=== PATIENT | female | born 1965 | race Caucasian/White ===

== ENCOUNTER 2017-12-06 15:22 | Outpatient (CLI) | payer BC, SELFPAY | END 2017-12-06 15:23 | disposition home or self-care (01) | LOC: DTY/OP 15:22 | PROVIDERS: ATTEND Physician Assistant | DX: I10 Essential (primary) hypertension (principal); E11.9 Type 2 diabetes mellitus without complications | CPT/HCPCS: 97802 ==

== ENCOUNTER 2018-01-08 15:20 | Outpatient (CLI) | payer BC | END 2018-01-08 15:21 | disposition home or self-care (01) | LOC: BICMAMMO 15:20 | PROVIDERS: ATTEND Family Medicine | DX: Z12.31 Encounter for screening mammogram for malignant neoplasm of breast (principal) | CPT/HCPCS: 77067 ==

== ENCOUNTER 2019-03-23 08:31 | Outpatient (CLI) | payer BC, SELFPAY ==
--- NOTE | 2019-03-23 09:04 | MMO ---
Bilateral MAMMO Bilat Screen [facility]. CLINICAL HISTORY: Patient is 53 years old and is seen for screening. The patient has no family history of breast cancer. The patient has no personal history of cancer. VIEWS: The views performed were: bilateral craniocaudal with tomosynthesis and bilateral mediolateral oblique with tomosynthesis. FILMS COMPARED: The present examination has been compared to prior imaging studies performed at [facility] on 01/08/2018, and at [facility] on 10/11/2011, 10/01/2012, 10/16/2012, 11/13/2013, 10/15/2014 and 04/27/2016. MAMMOGRAM FINDINGS: There are scattered fibroglandular densities. There are benign appearing calcifications seen in the right breast. There are no suspicious masses, suspicious calcifications, or new areas of architectural distortion. IMPRESSION: THERE IS NO MAMMOGRAPHIC EVIDENCE OF MALIGNANCY. A ROUTINE FOLLOW-UP MAMMOGRAM IN 1 YEAR IS RECOMMENDED. THE RESULTS OF THIS EXAM WERE SENT TO THE PATIENT. ACR BI-RADS Category 2 - Benign finding MAMMOGRAPHY NOTE: 1. A negative mammogram report should not delay a biopsy if a dominant of clinically suspicious mass is present. 2. Approximately 10% to 15% of breast cancers are not detected by mammography. 3. Adenosis and dense breasts may obscure an underlying neoplasm.
== END 2019-03-23 08:32 | disposition home or self-care (01) ==
LOC: BICMAMMO 08:31
DX: Z12.31 Encounter for screening mammogram for malignant neoplasm of breast (principal)
CPT/HCPCS: 77063; 77067

== ENCOUNTER 2019-05-26 09:55 | Outpatient (CLI) | payer BC ==
--- NOTE | 2019-05-26 10:16 | RAD ---
EXAM: 3 views of the right hand COMPARISON: None HISTORY: Finger pain FINDINGS: 3 views of the right hand shows no evidence of acute fracture or dislocation. No degenerati ve changes are seen. No soft tissue swelling is present. IMPRESSION: Unremarkable exam.
== END 2019-05-26 09:56 | disposition home or self-care (01) ==
LOC: BICRAD 09:55
PROVIDERS: ATTEND Physician Assistant
DX: M79.89 Other specified soft tissue disorders (principal); M79.644 Pain in right finger(s)
CPT/HCPCS: 36415; 80053; 80061; 82043; 82306; 83036; 84443; 85025

== ENCOUNTER 2019-08-05 09:04 | Outpatient (CLI) | payer BC ==
--- NOTE | 2019-08-05 10:21 | MRI ---
MRI CERVICAL SPINE WITHOUT CONTRAST: INDICATIONS: Cervical radiculitis. FINDINGS: Motion artifact limits evaluation. Straightening of normal cervical curvature. Cord signal is not reliably assessed due to obscuration by patient motion. Degenerative hypertrophy at the C1-C2 level is present without significant central canal stenosis. C2-C3: Slight disk osteophyte complex effacing the ventral thecal sac, although no high grade centra l canal or neural foraminal stenosis. C3-C4: Small left paracentral disk protrusion with slight effacement of the ventral thecal sac. No high grade foraminal stenosis. C4-C5: Broad-based disk osteophyte with mild effacement of the ventral thecal sac. No high grade fo raminal stenosis. C5-C6: The level is limited by motion. There is a prominent broad-based disk osteophyte. The possi bility of a superimposed disk protrusion may also be present, although is limited by patient motion. Findings result in moderate to severe central canal stenosis and moderate cord compression. There i s moderate right and mild left neural foraminal stenosis. C6-C7: No high grade central canal or neural foraminal stenosis. C7-T1: No high grade central canal or neural foraminal stenosis. IMPRESSION: Degenerative changes of the cervical spine, limited by patient motion. Findings are most pronounced at C5-C6, with broad-based disk osteophyte and probable superimposed disk protrusion, producing moder ate to severe central canal stenosis and moderate cord compression. Recommend neurosurgical consultation for further assessment. POS: [facility]
== END 2019-08-05 09:05 | disposition home or self-care (01) ==
LOC: BICMRI 09:04
PROVIDERS: ATTEND Orthopaedic Surgery Hand Surgery
DX: M47.22 Other spondylosis with radiculopathy, cervical region (principal); M48.02 Spinal stenosis, cervical region
CPT/HCPCS: 36415; 72141; 83520; 85025; 85652; 86038; 86200; 86225; 86618

== ENCOUNTER 2020-10-17 14:43 | Outpatient (CLI) | payer BC ==
--- NOTE | 2020-10-17 15:25 | MMO ---
Bilateral MAMMO Bilat Screen [facility]DI[facility]U. CLINICAL HISTORY: Patient is 55 years old and is seen for screening. The patient has no family history of breast cancer. The patient has no personal history of cancer. VIEWS: The views performed were: bilateral craniocaudal with tomosynthesis; bilateral mediolateral oblique with tomosynthesis; and left mediolateral oblique. FILMS COMPARED: The present examination has been compared to prior imaging studies performed at [facility] on 01/08/2018 and 03/23/2019, and at [facility] on 10/15/2014 and 04/27/2016. This study has been interpreted with the assistance of computer-aided detection. MAMMOGRAM FINDINGS: There are scattered fibroglandular densities. There are benign appearing calcifications seen in both breasts. There are no suspicious masses, suspicious calcifications, or new areas of architectural distortion. IMPRESSION: THERE IS NO MAMMOGRAPHIC EVIDENCE OF MALIGNANCY. A ROUTINE FOLLOW-UP MAMMOGRAM IN 1 YEAR IS RECOMMENDED. THE RESULTS OF THIS EXAM WERE SENT TO THE PATIENT. ACR BI-RADS Category 2 - Benign finding MAMMOGRAPHY NOTE: 1. A negative mammogram report should not delay a biopsy if a dominant of clinically suspicious mass is present. 2. Approximately 10% to 15% of breast cancers are not detected by mammography. 3. Adenosis and dense breasts may obscure an underlying neoplasm. Reported by: RINA QUIROZ MD Electonically Signed: [id number]
== END 2020-10-17 14:44 | disposition home or self-care (01) ==
LOC: BICMAMMO 14:43
PROVIDERS: ATTEND Physician Assistant
DX: Z12.31 Encounter for screening mammogram for malignant neoplasm of breast (principal)
CPT/HCPCS: 77063; 77067

== ENCOUNTER 2021-10-25 08:11 | Outpatient (CLI) | payer BC | END 2021-10-25 08:12 | disposition home or self-care (01) | LOC: BICMAMMO 08:11 | PROVIDERS: ATTEND Nurse Practitioner Family | DX: Z12.31 Encounter for screening mammogram for malignant neoplasm of breast (principal) | CPT/HCPCS: 77063; 77067 ==

== ENCOUNTER 2022-10-30 09:18 | Outpatient (CLI) | payer BC | END 2022-10-30 09:19 | disposition home or self-care (01) | LOC: BICMAMMO 09:18 | PROVIDERS: ATTEND Nurse Practitioner Family | DX: Z12.31 Encounter for screening mammogram for malignant neoplasm of breast (principal); R92.8 Other abnormal and inconclusive findings on diagnostic imaging of breast | CPT/HCPCS: 77063; 77067 ==

== ENCOUNTER 2023-12-13 09:38 | Outpatient (CLI) | payer BC | END 2023-12-13 09:39 | disposition home or self-care (01) | LOC: BICMAMMO 09:38 | PROVIDERS: ATTEND Physician Assistant | DX: Z12.31 Encounter for screening mammogram for malignant neoplasm of breast (principal) | CPT/HCPCS: 77063; 77067 ==

== ENCOUNTER 2024-11-10 16:08 | Outpatient (CLI) | payer BC ==
[2024-11-10 17:10] LABS: #Basophils 0.05 10x3/uL (0.0-0.2); %Basophils 0.6 % (0.0-1.0); %Lymphocytes 39.7 % (21.0-51.0); %Monocytes 6.5 % (0.0-10.0); %Neutrophils 51.1 % (42.0-75.0); Hematocrit 42.4 % (36.0-47.0); Hemoglobin 15.1 g/dL (12.0-16.0); Mean Corpuscular HGB CONC 35.6 g/dL (32.0-36.0); Mean Corpuscular Hemoglobin 31.7 pg (27.0-31.0); Mean Corpuscular Volume 89.1 fL (78.0-98.0); Mean Platelet Volume 11.1 fL (7.4-10.4); Platelet Count 280 10x3/uL (130-400); Red Blood Cell (RBC) Count 4.76 mill/uL (4.20-5.40)
[2024-11-10 17:29] LABS: Anion Gap 15 mmol/L (10-20); BUN (Urea Nitrogen) 9 mg/dL (9.8-20.1); Calc. Creatinine Clearance 0 mL/min (70-130); Calcium 8.7 mg/dL (7.8-10.44); Carbon Dioxide 22 mmol/L (22-29); Chloride 103 mmol/L (98-107); Estimated GFR 90; Glucose 382 mg/dL (70-105); Potassium 4.2 mmol/L (3.5-5.1); Sodium 136 mmol/L (136-145)
== END 2024-11-10 16:09 | disposition home or self-care (01) ==
LOC: LABBT 16:08
PROVIDERS: ATTEND Orthopaedic Surgery Hand Surgery
DX: Z01.812 Encounter for preprocedural laboratory examination (principal); M65.331 Trigger finger, right middle finger; M65.332 Trigger finger, left middle finger; G56.01 Carpal tunnel syndrome, right upper limb
CPT/HCPCS: 80048; 85025; 93005; 93010

== ENCOUNTER 2024-11-17 05:55 | Day surgery (SDC) | payer BC ==
[2024-11-10 16:35] VITALS: BMI 30.8
[2024-11-17] MEDS ORDERED: Bacitracin Zinc Ointment 30 gm TUBE ONE (06:18)
[2024-11-17] MEDS ORDERED: Bupivacaine PF 0.5% 30 ML VIAL ONE (06:19)
[2024-11-17] MEDS ORDERED: CEFAZOLIN 2 GM VIAL ONE (06:50)
[2024-11-17] MEDS ORDERED: fentaNYL PF 100 MCG/2 ML SYRINGE ONE (06:54)
[2024-11-17] MEDS ORDERED: Lidocaine 1% PF 5 ML VIAL ONE (06:54)
[2024-11-17] MEDS ORDERED: PROPOFOL 20 ML ONE (06:54)
[2024-11-17] MEDS ORDERED: Dexamethasone 20 MG/5 ML VIAL ONE (06:54)
[2024-11-17] MEDS ORDERED: Ondansetron PF 4 MG/2 ML Vial ONE (06:54)
[2024-11-17] MEDS ORDERED: PHENYLEPHRINE-NS 100 MCG/ML 10 ML SYRINGE ONE (07:16)
[2024-11-17] MEDS ORDERED: ePHEDrine Sulfate 50 MG/10 ML VIAL ONE (07:33)
[2024-11-17] MEDS ORDERED: Ketorolac Tromethamine 30 MG (1 mL) VIAL ONE (08:32)
== END 2024-11-17 09:45 | disposition home or self-care (01) ==
LOC: SDC 05:55
PROVIDERS: ATTEND Orthopaedic Surgery Hand Surgery
PROC: 0LB70ZZ Excision of Right Hand Tendon, Open Approach (ICD-10-PCS; principal; 2024-11-17)
PROC: 01N50ZZ Release Median Nerve, Open Approach (ICD-10-PCS; principal; 2024-11-17)
DX: M65.331 Trigger finger, right middle finger (principal); M65.332 Trigger finger, left middle finger; G56.01 Carpal tunnel syndrome, right upper limb; M67.441 Ganglion, right hand; E03.9 Hypothyroidism, unspecified; I10 Essential (primary) hypertension; F32.A Depression, unspecified; E66.9 Obesity, unspecified; Z90.49 Acquired absence of other specified parts of digestive tract; Z98.890 Other specified postprocedural states; Z79.890 Hormone replacement therapy; Z68.30 Body mass index [BMI] 30.0-30.9, adult
CPT/HCPCS: 88304; A6223; J0665; J1100; J1885; J2405; J2704

== ENCOUNTER 2025-11-25 17:55 | Emergency (ER) | payer BC, OTHER ==
[2025-11-25] MEDS ORDERED: Ondansetron PF 4 MG/2 ML Vial ONE (18:33)
[2025-11-25] MEDS ORDERED: Ketorolac Tromethamine 30 MG (1 mL) VIAL ONE (20:31)
[2025-11-25] MEDS ORDERED: HYDROcodone/Acetaminophen 7.5/325 mg Tablet ONE (20:32)
== END 2025-11-25 21:15 ==
LOC: ERS 17:55
DX: S52.022A Displaced fracture of olecranon process without intraarticular extension of left ulna, initial encounter for closed fracture (principal); S20.211A Contusion of right front wall of thorax, initial encounter; S80.11XA Contusion of right lower leg, initial encounter; S80.12XA Contusion of left lower leg, initial encounter; S80.01XA Contusion of right knee, initial encounter; S80.02XA Contusion of left knee, initial encounter; S30.811A Abrasion of abdominal wall, initial encounter; I10 Essential (primary) hypertension; E11.9 Type 2 diabetes mellitus without complications; V49.40XA Driver injured in collision with unspecified motor vehicles in traffic accident, initial encounter
CPT/HCPCS: 29105; 90471; 90715; 96374; 96375; J1885; J2270; J2405